=== PATIENT | male | born 1990 ===

== ENCOUNTER 2019-04-08 10:41 | Emergency (ER) | payer OTHER ==
[2019-04-08 11:12] VITALS: BP 129/78
--- NOTE | 2019-04-08 11:42 | UC ---
Dental HPI - HPI Summary HPI Summary: Pt presents with c/o "rough, hard spot" on left upper gum line where tooth was extracted 4 days ago. Pt is currently on clindamycin and is concerned that a piece of tooth remains in gum. - History of Current Complaint Chief Complaint: UCDentalProblem Stated Complaint: DENTAL CONCERN Time Seen by Provider: 04/08/19 11:29 Hx Obtained From: Patient Onset/Duration: Gradual Onset, Lasting Days, Still Present Severity: Moderate Pain Intensity: 0 Aggravating Factor(s): Other - touch Related History: Previous Dental Care on Same Tooth, Swelling - Allergies/Home Medications Allergies/Adverse Reactions: Allergies Allergy/AdvReac Type Severity Reaction Status Date / Time No Known Allergies Allergy Verified 04/08/19 11:04 Home Medications: Home Medications ARIPiprazole TAB* [Abilify TAB*] 5 mg PO DAILY 04/08/19 [History Confirmed ] Clindamycin HCl 300 mg PO TID 04/08/19 [History Confirmed 04/08/19] Ergocalciferol (Vitamin D2) [Vitamin D2] 50 mcg PO WEEKLY 04/08/19 [History Confirmed 04/08/19] Ibuprofen TAB* [Motrin TAB* 800 MG] 800 mg PO Q6H 04/08/19 [History Confirmed ] Venlafaxine ER (NF) [Effexor ER (NF)] 150 mg PO DAILY 04/08/19 [History Confirmed 04/08/19] PMH/Surg Hx/FS Hx/Imm Hx Previously Healthy: Yes - Surgical History Surgical History: Yes Surgery Procedure, Year, and Place: tonsillectomy - Family History Known Family History: Positive: Cardiac Disease - Social History Occupation: Employed Full-time Lives: With Family Alcohol Use: Occasionally Substance Use Type: None Smoking Status (MU): Current Some Day Smoker Amount Used/How Often: 1 can/day Have You Smoked in the Last Year: Yes Review of Systems All Other Systems Reviewed And Are Negative: Yes Constitutional: Positive: Negative Skin: Positive: Negative Eyes: Positive: Negative ENT: Positive: Dental Pain Respiratory: Positive: Negative Cardiovascular: Positive: Negative Gastrointestinal: Positive: Negative Genitourinary: Positive: Negative Motor: Positive: Negative Neurovascular: Positive: Negative Musculoskeletal: Positive: Negative Neurological: Positive: Negative Psychological: Positive: Negative Is Patient Immunocompromised?: No Physical Exam Triage Information Reviewed: Yes Appearance: Well-Appearing Vital Signs: Initial Vital Signs Temp 98.1 F 04/08/19 11:07 Pulse 94 04/08/19 11:07 Resp 16 04/08/19 11:07 BP 129/78 04/08/19 11:07 Pulse Ox 99 04/08/19 11:07 Vital Signs Reviewed: Yes Eye Exam: Normal ENT Exam: Normal Dental Exam: Other - upper jaw, post tooth extraction on right an dleft side, both molar # 2 and 15 Neck exam: Normal Neck: Positive: Supple Respiratory Exam: Normal Cardiovascular Exam: Normal Musculoskeletal Exam: Normal Neurological Exam: Normal Psychological Exam: Normal Skin Exam: Normal Dental Complaint Course/Dx - Differential Dx/Diagnosis Differential Diagnosis/Dx: Dental Abscess, Fractured Tooth, Post Extraction Pain Provider Diagnosis: History of tooth extraction Discharge ED - Sign-Out/Discharge Documenting (check all that apply): Patient Departure All imaging exams completed and their final reports reviewed: No Studies - Discharge Plan Condition: Stable Disposition: HOME Patient Education Materials: Tooth Extraction (DC) Referrals: Luanne Garcia NP [Primary Care Provider] - If Needed Additional Instructions: Please follow up with your dental care provider(s) as soon as possible. Please continue to take the antibiotics prescribed by our dental provider as directed. - Billing Disposition and Condition Condition: STABLE Disposition: Home
== END 2019-04-08 11:48 | disposition home or self-care (01) ==
LOC: UCCORT 10:41
DX: K08.89 Other specified disorders of teeth and supporting structures (principal); F17.290 Nicotine dependence, other tobacco product, uncomplicated; Z98.890 Other specified postprocedural states
CPT/HCPCS: 99211; G0463